=== PATIENT | male | born 1995 | race Caucasian/White ===

== ENCOUNTER 2021-06-17 10:22 | Emergency (ER) | payer OTHER, SELFPAY ==
[2021-06-17 10:33] VITALS: BP 145/95; PULSE 108; RESP 16; TEMP 36.4; O2SAT 100
--- NOTE | 2021-06-17 10:37 | ED.GENADULT ---
HPI - General Adult General Chief complaint: Headache Stated complaint: Headache Time Seen by Provider: 06/17/21 10:57 Source: patient and RN notes reviewed Mode of arrival: ambulatory Limitations: no limitations History of Present Illness HPI narrative: 26-year-old presents concern for left-sided headache, eye pressure, eye irritation, sinus drainage, nasal congestion, worse on the left. Reports occasional cough. Denies body aches, chills, sweats, fever, trouble breathing, loss of sense of taste or smell. Denies history of migraines. Reports he has been using [id number] cold medicines which have slightly improved symptoms temporarily. Reports taking Excedrin Migraine which temporarily relieved his headache. Denies known sick contacts. MD complaint: Headache Related Data Allergies Allergy/AdvReac Type Severity Reaction Status Date / Time latex Allergy Unknown Hives Verified 06/17/21 10:39 Iodinated Contrast Media Allergy Hives Verified 06/17/21 10:50 Iodine and Iodide Containing Allergy Hives Verified 06/17/21 10:50 Produc cinnamon AdvReac Intermediate facial Verified 06/17/21 10:39 swelling Review of Systems Review of Systems: CONSTITUTIONAL: Denies malaise, chills, sweats, or fever. EYES: Denies visual changes, redness, or discharge. ENT: Reports rhinorrhea, congestion. Denies sinus pain, otalgia and sore throat. CARDIOVASCULAR: Denies chest pain, palpitations, or edema. RESPIRATORY: Reports cough. Denies dyspnea. GASTROINTESTINAL: Denies abdominal pain, nausea, vomiting, diarrhea SKIN: Denies rash or itching. MUSCULOSKELETAL: Denies myalgia. NEUROLOGIC: Reports left-sided headache. All systems reviewed & are unremarkable except as noted in HPI and below PMFSH Family History Family History (Updated 06/01/14 @ 07:13 by DOCTOR UNKNOWN) Mother Cerebrovascular accident Social History Social History Smoking status: Never smoker Alcohol intake: never Comments At time of signature, agree with nursing past medical, surgical, social and family history. There is no relevant family history pertinent to the presenting complaint Exam Narrative: GENERAL: Well-appearing, well-nourished, and in no acute distress. HEAD: Normocephalic EYES: PERRLA, conjunctivae clear ENT: Nares clear, left-sided turbinates edematous and erythematous, clear discharge. Mucous membranes moist. TM pearly bueno with dull light reflex bilaterally; no tragal tenderness. Oropharynx not erythematous without lesions. Tonsils not enlarged and without exudate, no drooling, no hoarseness, no trismus, uvula midline. NECK: Supple. No lymphadenopathy CHEST: Clear to auscultation, breath sounds equal. No wheezing, rhonchi, rales, or stridor. No respiratory distress, speaks in full sentences. HEART: Regular rate and rhythm. No murmur heard. SKIN: Warm, dry, no rash. NEURO: Alert and oriented x3. No focal deficits. Cranial nerves II through XII grossly intact PSYCH: Normal mood and affect Course Course Emergency Course: Patient is aware of diagnosis, understands and agrees to treatment plan. Anticipatory guidance given. Patient agrees to follow-up as directed and is aware of reasons to seek care at the emergency department. Portions of this record may have been created with voice recognition software Vital Signs Vital signs: Vital Signs Temperature 97.6 F 06/17/21 10:33 Pulse Rate 108 H 06/17/21 10:33 Respiratory Rate 16 06/17/21 10:33 Blood Pressure 145/95 H 06/17/21 10:33 Pulse Oximetry 100 06/17/21 10:33 Temperature 97.6 F 06/17/21 10:33 Pulse Rate 108 H 06/17/21 10:33 Respiratory Rate 16 06/17/21 10:33 Blood Pressure 145/95 H 06/17/21 10:33 Pulse Oximetry 100 06/17/21 10:33 Reviewed. Medical Decision Making MDM Narrative Medical decision making narrative: Differential diagnosis considered: Migraine, temporal arteritis, intracranial pathology, Smith virus, strep pharyngitis, allergic rhin
== END 2021-06-17 11:08 | disposition home or self-care (01) ==
PROVIDERS: Emergency Provider Nurse Practitioner
DX: J01.10 Acute frontal sinusitis, unspecified (principal); I10 Essential (primary) hypertension; E11.9 Type 2 diabetes mellitus without complications
CPT/HCPCS: 99213; G0463

== ENCOUNTER 2021-06-24 17:18 | Emergency (ER) | payer OTHER, SELFPAY ==
[2021-06-24 17:28] VITALS: BP 135/87; PULSE 117; RESP 18; TEMP 36.2; O2SAT 99
--- NOTE | 2021-06-24 19:19 | ED.NAVMDI ---
HPI - Nausea/Vomiting/Diarrhea General Chief complaint: Nausea/Vomiting/Diarrhea Stated complaint: Nausea Time Seen by Provider: 06/24/21 19:19 Source: patient, RN notes reviewed and old records reviewed Mode of arrival: ambulatory Limitations: no limitations History of Present Illness HPI Narrative: 26 year old male who presents to [facility] care with complaints of nausea with no emesis but has had diarrhea today. 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 He denies any cough or cold symptoms, denies any chills or any bodt aches. MD elicited complaint: nausea, vomiting and diarrhea Related Data Allergies Allergy/AdvReac Type Severity Reaction Status Date / Time latex Allergy Unknown Hives Verified 06/24/21 19:01 Iodinated Contrast Media Allergy Hives Verified 06/24/21 19:01 Iodine and Iodide Containing Allergy Hives Verified 06/24/21 19:01 Produc cinnamon AdvReac Intermediate facial Verified 06/24/21 19:01 swelling Review of Systems Review of Systems: CONSTITUTIONAL: Denies fever, chills, positive sweats EYES: Denies visual changes, redness, or discharge. ENT: Denies rhinorrhea, congestion, sore throat, or otalgia. CARDIOVASCULAR: Denies chest pain, palpitations, or edema. RESPIRATORY: Denies cough or dyspnea. GASTROINTESTINAL: Denies abdominal pain, states his stomach is upset with nausea,no vomiting, Positive diarrhea. GENITOURINARY: Denies dysuria or hematuria. SKIN: Denies rash or itching. MUSCULOSKELETAL: Denies back pain, joint pain, or myalgia. NEUROLOGIC: Denies headache, numbness, or weakness. PSYCHIATRIC: Denies anxiety or depression. All systems reviewed & are unremarkable except as noted in HPI and below PMFSH Past Medical History Medical History (Updated 06/25/21 @ 00:01 by Lis Davidson) Diabetes Hypertension Family History Family History (Updated 06/26/21 @ 20:03 by Shazia Thomas NP) Mother Cerebrovascular accident Other Diabetes mellitus Hypertension Social History Social History Smoking status: Never smoker Alcohol intake: never Comments At time of signature, agree with nursing past medical, surgical, social and family history. There is no relevant family history pertinent to the presenting complaint Exam Narrative: GENERAL: Well-appearing, well-nourished,obese and in no acute distress. HEAD: Normocephalic, atraumatic. EYES: PERRLA and EOMI. ENT: Nares clear, no rhinorrhea or epistaxis. Mucous membranes moist.TM's normal with good light reflex, throat pink with no lesions or exudates, no tonsil enlargement. NECK: Supple.no lymphadenopathy CHEST: Clear to auscultation. No respiratory distress.SAO2 99% on room air. HEART: Regular rate and rhythm. No murmur heard. Normal peripheral pulses. ABDOMEN: Soft, nontender to palpation with no McBurney point tenderness, nondistended, normal active bowel sounds. EXTREMITIES: Normal range of motion. No edema. SKIN: Warm, dry, no rash. NEURO: No focal deficits. Alert and oriented x3. Course Vital Signs Vital signs: Vital Signs Temperature 36.2 C L 06/24/21 17:28 Pulse Rate 117 H 06/24/21 17:28 Respiratory Rate 18 06/24/21 17:28 Blood Pressure 135/87 06/24/21 17:28 Pulse Oximetry 99 06/24/21 17:28 Temperature 36.2 C L 06/24/21 17:28 Pulse Rate 117 H 06/24/21 17:28 Respiratory Rate 18 06/24/21 17:28 Blood Pressure 135/87 06/24/21 17:28 Pulse Oximetry 99 06/24/21 17:28 MDM - Nausea/Vomiting/Diarrhea Differential Diagnosis Differential diagnosis: Likely food poisoning, gastroenteritis and other (diarrhea, nausea, Type I diabetic,) Medical Records Attestation: I reviewed the patient's medical records. Lab Data Attestat
[2021-06-26 16:56] LABS: SARS-CoV-2 RNA PCR Negative
== END 2021-06-24 19:55 | disposition home or self-care (01) ==
PROVIDERS: Emergency Provider Registered Nurse
DX: K52.9 Noninfective gastroenteritis and colitis, unspecified (principal); E11.9 Type 2 diabetes mellitus without complications; I10 Essential (primary) hypertension; Z20.822 Contact with and (suspected) exposure to COVID-19
CPT/HCPCS: 99213; C9803; G0463; U0003; U0005

== ENCOUNTER 2024-02-08 11:14 | Emergency (ER) | payer OTHER, SELFPAY ==
--- NOTE | ~2024-02-08 | XR_ITS ---
EXAMINATION: XR hand RT min 3V DATE: 02/08/2024 11:41 INDICATION: Right hand pain and swelling TECHNIQUE: Posteroanterior, oblique and lateral views of the right hand were obtained. COMPARISON: None. FINDINGS: Bone alignment is normal. No fracture. Small corticated ossicle either heterotopic ossification or sm all sesamoid bone palmar to the third proximal interphalangeal joint with no evident donor site to [place] ggest fracture. No acute fractures identified. Joint spaces are normal. No cortical erosions or perio steal reaction. Diffuse soft tissue swelling about the hand most prominent at the base of the fingers . No soft tissue gas or radiopaque foreign bodies. IMPRESSION: 1. No osseous abnormality. Reviewed, dictated and finalized at location A. IMPRESSION: 1. No osseous abnormality.
--- NOTE | 2024-02-08 11:26 | ED.EXTPRO ---
HPI - Extremity Problem General Chief complaint: Extremity Problem,Nontraumatic Stated complaint: right hand bruising,hurts Time Seen by Provider: 02/08/24 11:27 Source: patient Mode of arrival: ambulatory Limitations: no limitations History of Present Illness HPI Narrative: 28 yo M presents with pain to palm of R hand with redness and swelling getting progressively worse over 2 days. Afebrile. ROM and distal NV intact. denies injury. 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 Concerns metal in skin or got poked by the metal. tetanus UTD. all systems reviewed and negative except as noted above. Related Data Home Medications Medication Instructions Recorded Confirmed insulin lispro 100 unit/mL subcut 02/08/24 subcutaneous pen Allergies Allergy/AdvReac Type Severity Reaction Status Date / Time latex Allergy Unknown Hives Verified 02/08/24 11:26 Iodinated Contrast Media Allergy Hives Verified 02/08/24 11:26 Iodine and Iodide Containing Allergy Hives Verified 02/08/24 11:26 Produc cinnamon AdvReac Intermediate facial Verified 02/08/24 11:26 swelling Review of Systems Review of Systems: CONSTITUTIONAL: Denies fever, chills, or sweats. EYES: Denies visual changes, redness, or discharge. ENT: Denies rhinorrhea, congestion, sore throat, or otalgia. CARDIOVASCULAR: Denies chest pain, palpitations, or edema. RESPIRATORY: Denies cough or dyspnea. GASTROINTESTINAL: Denies abdominal pain, nausea, vomiting, or diarrhea. GENITOURINARY: Denies dysuria or hematuria. SKIN: Denies rash or itching. MUSCULOSKELETAL: Denies back pain, joint pain, or myalgia. Patient reports pain and swelling with redness to palm right hand. NEUROLOGIC: Denies headache, numbness, or weakness. PSYCHIATRIC: Denies anxiety or depression. All other systems reviewed are negative, except as documented in HPI. [facility] Past Medical History Medical History (Updated 02/08/24 @ 11:56 by Nikia Sarkar NP) Diabetes Hypertension Family History Family History (Updated 06/26/21 @ 20:03 by Shazia Thomas NP) Mother Cerebrovascular accident Other Diabetes mellitus Hypertension Social History Social History Smoking status: Never smoker Alcohol intake: never Comments At time of signature, agree with nursing past medical, surgical, social and family history. There is no relevant family history pertinent to the presenting complaint. Exam Narrative: GENERAL: This is a well-nourished, well-developed patient, in no apparent distress. HEAD: normocephalic, atraumatic. EYES: PERRL. Sclera clear/white. Vision is grossly intact. EARS: External ears normal NOSE: External nose normal NECK: Neck supple, non-tender without lymphadenopathy, masses or thyromegaly. CARDIOVASCULAR: Regular rate and rhythm without murmurs, gallops, or rubs. RESPIRATORY: Clear to auscultation. Breath sounds equal bilaterally. No wheezes, rales, or rhonchi. SKIN: warm, Dry, intact with no suspicious lesions or rash, good texture and turgor. NEURO: awake, alert, and oriented to person, place and time. There were no obvious focal neurologic abnormalities. EXTREMITIES: No joint tenderness, effusion, or edema noted. MUSCULOSKETAL: swelling to R hand with tenderness and erythema to palm of R hand, hypothenar Course Course Level of Care: Express Care Visit Vital Signs Vital signs: Reviewed patient's heart rate elevated today. States that he drink energy drink prior to arrival. Also did not take blood pressure medications morning. MDM - Extremity (Nontraumatic) MDM Narrative Medical decision making narrative: Discussed x-ray results with patient. X-ray negative for fracture, no foreign body. Will treat patient with cephalexin for cellulitis. Cellulitis is mild, range of motion and distal neurovascularly intact to right hand. Patient nontoxic.
[2024-02-08 11:27] VITALS: BP 140/98; PULSE 116; RESP 16; TEMP 36.6; O2SAT 99
[2024-02-08 11:34] VITALS: PULSE 116; RESP 16; TEMP 36.6; O2SAT 99
== END 2024-02-08 12:00 | disposition home or self-care (01) ==
PROVIDERS: Emergency Provider Nurse Practitioner Family
DX: L03.113 Cellulitis of right upper limb (principal); E11.9 Type 2 diabetes mellitus without complications; Z79.4 Long term (current) use of insulin; I10 Essential (primary) hypertension
CPT/HCPCS: 73130; 99213; G0463

== ENCOUNTER 2024-09-29 12:10 | Emergency (ER) | payer OTHER, SELFPAY ==
[2024-09-29 12:23] VITALS: BP 144/96; PULSE 120; RESP 18; TEMP 36.9; O2SAT 99
--- NOTE | 2024-09-29 13:01 | ED.GENADULT ---
HPI - General Adult General Chief complaint: Eye Problems Stated complaint: rt eye pain and swelling Time Seen by Provider: 09/29/24 13:17 Source: patient, RN notes reviewed and old records reviewed Mode of arrival: ambulatory Limitations: no limitations History of Present Illness HPI narrative: 29-year-old male presents to the [facility] with complaints of right side of face discomfort, states that feels swollen. Also reports cough and congestion. Denies any drainage, blurry vision or change in vision from the eye. Reports taken Sudafed and Tylenol. Vision is a type 1 diabetic. Has not taken any insulin because he has not eaten today. Has not had his pump on. Reports that he does have his linens [employer] use it on upon discharge. Discussed signs and symptoms to go the emergency room, declining transfer at this time to lower blood sugar. Onset (ago): day(s) (3) Related Data Home Medications ?Medication ?Instructions ?Recorded ?Confirmed ?Last Taken ?Type insulin lispro 100 unit/mL subcut 02/08/24 09/28/24 History subcutaneous pen atorvastatin 10 mg tablet mg 09/29/24 Unknown History blood-glucose sensor (Dexcom G7 09/29/24 09/29/24 Unknown History Sensor device) insulin glargine 100 unit/mL (3 unit subcut 09/29/24 09/28/24 History mL) subcutaneous pen (Lantus Solostar U-100 Insulin) losartan 25 mg tablet mg 09/29/24 Unknown History Allergies Allergy/AdvReac Type Severity Reaction Status Date / Time latex Allergy Unknown Hives Verified 09/29/24 12:20 Iodinated Contrast Media Allergy Hives Verified 09/29/24 12:20 Iodine and Iodide Containing Allergy Hives Verified 09/29/24 12:20 Produc cinnamon AdvReac Intermediate facial Verified 09/29/24 12:20 swelling Review of Systems Review of Systems: All systems reviewed & are unremarkable except as noted in HPI and below Constitutional: Constitutional: Reports no additional constitutional complaints ENT: Reports as per HPI Cardiovascular: Cardiovascular: Reports no additional cardiovascular complaints, Denies chest pain and Denies dyspnea Respiratory: Respiratory: Reports no additional respiratory complaints, Denies chest congestion, Denies cough and Denies dyspnea Musculoskeletal: Musculoskeletal: Reports no additional musculoskeletal complaints Integumentary/Breasts: Skin/Breast: Reports system reviewed and no additional complaints, except as docu PMFSH Past Medical History Medical History Hypertension Diabetes Family History Family History Mother Cerebrovascular accident Other Diabetes mellitus Hypertension Social History Social History Smoking status: Never smoker Alcohol intake: never Comments At the time of my signature, I reviewed and agree with the nursing past medical, surgical, social, and family history. There is no relevant family history pertinent to the patient complaint. Exam Const: General: cooperative, healthy appearing, comfortable, no acute distress, well developed, alert and well nourished Nutritional Appearance: well nourished and obese Orientation/consciousness: patient oriented x3 Limitations: no limitations HENMT: Head: normal to inspection Ears: hearing grossly normal bilaterally, external ears normal, TM's normal bilaterally, EAC's normal, mastoids normal and no periauricular adenopathy Face/Nose/Sinus: Normal nasal mucous membranes and turbinates present, No nasal discharge present, normal facial exam and face symmetric Face and sinus: normal facial exam and face symmetric Mouth: Yes Normal oral and palatal mucosa present, Yes lip normal, Yes tongue normal and Yes moist mucous membranes Throat: posterior oropharynx normal, tonsils normal, uvula midline and no uvular edema Eyes: General: appearance normal, both eyes and all related structures Neck: Neck: normal visual inspection, full ROM, no lymphadenopathy and no meningeal signs Chest: Chest palpation & inspection: normal inspection of the chest Resp: Effort & Inspection: normal respiratory effort and able to speak in complete sentences Auscultation: clear to auscultation bilaterally, no crackles, no rales, no rhonchi and no wheezes Cardio: Rate: regular rate Skin: General skin exam: normal color and no rashes or lesions noted Neuro: General: patient oriented x3, gait normal, moves all extremities and no meningeal signs Cognition (Neuro): normal cognition Speech: normal speech Gait exam (Neuro): Normal gait present Extrem: General: normal to inspection, full ROM, capillary refill normal and normal gait Psych: Appearance: grossly normal and well kempt Mental Status: mental status grossly normal Speech and movement: Normal speech and movement present and Clear speech present Affect: normal affect Attitude: cooperative Course Course Level of Care: Express Care Visit Vital Signs Vital signs: Vital Signs Temperature 98.5 F 09/29/24 12:23 Pulse Rate 120 H 09/29/24 12:23 Respiratory Rate 18 09/29/24 12:23 Blood Pressure 144/96 H 09/29/24 12:23 Pulse Oximetry 99 09/29/24 12:23 Oxygen Delivery Room Air 09/29/24 12:23 Temperature 98.5 F 09/29/24 12:23 Pulse Rate 120 H 09/29/24 12:23 Respiratory Rate 18 09/29/24 12:23 Blood Pressure 144/96 H 09/29/24 12:23 Pulse Oximetry 99 09/29/24 12:23 Oxygen Delivery Room Air 09/29/24 12:23 Reviewed Medical Decision Making MDM Narrative Medical decision making narrative: Patient sitting comfortably in exam room. Nontoxic, vitals stable. Patient in no acute distress Patient presents for 3 days of sinus congestion. Flu and COVID test was offered, blood sugar done blood sugar is found to be elevated. Offered to send to the emergency room for further evaluation, concerned for noncompliance for type 1 diabetes. Discussed risks of not properly treating diabetes with patient which she verbalized understanding No acute findings noted the eyes, no signs of conjunctivitis. Most likely viral sinusitis. Patient appropriate for outpatient treatment and follow-up Discharge instructions reviewed with patient, as well as provided in writing per nursing staff. The instructions also include specific and strict return/GO TO THE ER as well as f/u information. All questions have been answered, and the patient deny any further questions with discharge and discharge plan. Some parts of this dictation were generated by voice recognition software and may contain typographical and/or grammatical inaccuracies. Differential Diagnosis Differential Diagnosis: Sinusitis, URI Medical Records Medical records reviewed: Yes I reviewed the external patient's medical records. Vital Signs Vital Signs: Vital Signs Temperature 98.5 F 09/29/24 12:23 Pulse Rate 120 H 09/29/24 12:23 Respiratory Rate 18 09/29/24 12:23 Blood Pressure 144/96 H 09/29/24 12:23 Pulse Oximetry 99 09/29/24 12:23 Oxygen Delivery Room Air 09/29/24 12:23 Temperature 98.5 F 12/26/24 12:23 Pulse Rate 120 H 09/29/24 12:23 Respiratory Rate 18 09/29/24 12:23 Blood Pressure 144/96 H 09/29/24 12:23 Pulse Oximetry 99 09/29/24 12:23 Oxygen Delivery Room Air 09/29/24 12:23 Reviewed Lab Data Lab results reviewed: Yes I reviewed the patient's lab results. Labs: Lab Results 09/29/24 Range/Units 13:30 POC Capillary Glucose 322 H (65-105) mg/dl Reviewed Critical Care Time Critical Care Time Critical Care Time: No Discharge Plan Discharge Clinical Impression: Sinusitis, High blood sugar Patient Disposition: Home, Self-Care Condition: Stable Instructions: Antibiotic Form, Sinusitis (ED) Additional Instructions: take Tylenol or Motrin for pain. Your blood sugar was elevated today in clinic. Is extremely important that you do monitor your blood sugar and treat. Uncontrolled blood sugar can lead to more serious health issues. If you are having a hard time finding a physician please call our [facility] liaison at [phone]. If you have increasing symptoms please go directly to the emergency room Use a humidifier or vaporizer at night. Take Medications as prescribed. Drink plenty of water. 8-10 glasses per day. Use flonase 2 times per day for 5 days then as needed Take mucinex 2 times per day and be sure to take with 8oz of water. Follow up with Primary provider if not getting better. Patient Language: Lithuanian Prescriptions: New fluticasone propionate [Flonase Allergy Relief] 50 mcg/actuation spray,suspension 2 spray intranasal DAILY Qty: 16 0RF Rx Instructions: administer into each nostril No Action insulin lispro 100 unit/mL insulin pen SUBCUT insulin glargine [Lantus Solostar U-100 Insulin] 100 unit/mL (3 mL) insulin pen SUBCUT (DME) Dexcom G7 Sensor Device MISCELLANEOUS atorvastatin 10 mg tablet losartan 25 mg tablet Follow-up/Referrals: PHYSICIAN,ROTOR BALANCER [Primary Care Provider] - Stand Alone Forms: Work/School Release IP Time of Disposition: 13:32
[2024-09-29 13:33] LABS: Glucose Point of Care 322 mg/dl (65-105)
== END 2024-09-29 13:33 | disposition home or self-care (01) ==
PROVIDERS: Emergency Provider Nurse Practitioner
DX: J32.9 Chronic sinusitis, unspecified (principal); E10.9 Type 1 diabetes mellitus without complications; Z79.4 Long term (current) use of insulin; Z96.41 Presence of insulin pump (external) (internal); I10 Essential (primary) hypertension
CPT/HCPCS: 82948; 99213; G0463

== ENCOUNTER 2025-02-01 14:31 | Emergency (ER) | payer OTHER, SELFPAY ==
--- NOTE | 2025-02-01 14:34 | ED_ITS ---
HPI - URI/Sore Throat General Chief Complaint: Upper Respiratory Infection Stated Complaint: Sore Throat/Nausea Time Seen by Provider: 02/01/25 14:34 Source: patient Mode of arrival: ambulatory Limitations: no limitations History of Present Illness HPI Narrative: Patient is a 29-year-old male that presents with 3 days of sore throat, hoarse voice, congestion, cough, nausea. Patient also has headache and has felt feverish. Denies any chills, body aches, vomiting or diarrhea. Patient has not taken anything for symptoms. Hx of strep throat. Related Data Home Medications ?Medication ?Instructions ?Recorded ?Confirmed ?Last Taken ?Type insulin lispro 100 unit/mL subcut 02/08/24 09/28/24 History subcutaneous pen atorvastatin 10 mg tablet mg 09/29/24 Unknown History blood-glucose sensor (Dexcom G7 09/29/24 09/29/24 Unknown History Sensor device) insulin glargine 100 unit/mL (3 unit subcut 09/29/24 09/28/24 History mL) subcutaneous pen (Lantus Solostar U-100 Insulin) losartan 25 mg tablet mg 09/29/24 Unknown History Allergies Allergy/AdvReac Type Severity Reaction Status Date / Time latex Allergy Unknown Hives Verified 02/01/25 14:39 Iodinated Contrast Media Allergy Hives Verified 02/01/25 14:39 Iodine and Iodide Containing Allergy Hives Verified 02/01/25 14:39 Produc cinnamon AdvReac Intermediate facial Verified 02/01/25 14:39 swelling Review of Systems Review of Systems: All systems reviewed & are unremarkable except as noted in HPI and below Constitutional: Constitutional: Denies chills, Denies fatigue, Reports fever(s), Reports headache(s), Denies malaise and Denies weakness Eyes: Eyes: Denies blurry vision, Denies itchy eyes and Denies loss of vision ENT: Denies otalgia, Reports headache(s), Reports hoarseness, Reports nasal congestion, Denies sinus pain and Reports sore throat Cardiovascular: Cardiovascular: Denies chest pain, Denies irregular heart rhythm and Denies dyspnea Respiratory: Respiratory: Reports cough and Denies dyspnea Gastrointestinal: Gastrointestinal: Denies abdominal pain, Denies diarrhea, Denies nausea and Denies vomiting Musculoskeletal: Musculoskeletal: Denies back pain, Denies myalgias and Denies arthralgias Integumentary/Breasts: Skin/Breast: Denies pruritus and Denies rash Neurologic: Reports headache(s), Denies loss of vision and Denies weakness Psychiatric: Psychiatric: Reports no additional psychiatric complaints Endocrine: Endocrine: Denies fatigue Allergic/Immunologic: Allergic/Immunologic: Denies itchy eyes PMFSH Past Medical History Medical History Hypertension Diabetes Family History Family History Mother Cerebrovascular accident Other Diabetes mellitus Hypertension Social History Social History Smoking status: Never smoker Alcohol intake: never Comments At time of signature, agree with nursing past medical, surgical, social and family history. There is no relevant family history pertinent to the presenting complaint. Exam Const: General: cooperative, healthy appearing, comfortable, no acute distress and well nourished Nutritional Appearance: well nourished Orientation/consciousness: patient oriented x3 Limitations: no limitations HENMT: Head: normal to inspection, normocephalic and atraumatic Ears: hearing grossly normal bilaterally, external ears normal, TM's normal bilaterally, EAC's normal and no periauricular adenopathy Face/Nose/Sinus: Normal external nose present, Abnormal mucous membranes and turbinates present erythematous bilateral and diffuse, normal facial exam, sinuses nontender and face symmetric Face and sinus: normal facial exam, sinuses nontender and face symmetric Mouth: Yes Normal oral and palatal mucosa present, Yes lip normal, Yes tongue normal, Yes Normal salivary glands and ducts present, Yes oropharynx normal and Yes moist mucous membranes Teeth and gingiva: dentition normal Throat: posterior oropharynx normal, uvula midline and abnormal tonsil bilateral hypertrophy 3+ Eyes: General: appearance normal, both eyes and all related structures Alignment and Position: alignment normal and position normal Periorbital: periorbital findings normal Eyelids: eyelids normal Pupils: Equal, round and reactive pupils present Neck: Neck: normal visual inspection, full ROM, no lymphadenopathy and supple Chest: Chest palpation & inspection: normal inspection of the chest and normal palpation of entire chest wall Resp: Effort & Inspection: normal respiratory effort and able to speak in complete sentences Auscultation: clear to auscultation bilaterally, no crackles, no rales, no rhonchi and no wheezes Cardio: Rate: regular rate Rhythm: regular rhythm Heart sounds: S1 normal heart sound present and S2 normal heart sound present GI: Inspection: normal to inspection Skin: General skin exam: normal color and no rashes or lesions noted Neuro: General: patient oriented x3 and moves all extremities Cranial nerves: Yes Equal, round and reactive pupils present Speech: normal speech Gait exam (Neuro): Normal gait present Extrem: General: normal to inspection, full ROM and no edema Psych: Appearance: grossly normal and well kempt Mental Status: mental status grossly normal Speech and movement: Normal speech and movement present Affect: normal affect Attitude: cooperative Thought process: Normal thought process present Course Course Emergency Course: Discharge instructions reviewed with patient, as well as provided in writing per nursing staff. The instructions also include specific and strict return/GO TO THE ER as well as f/u information. All questions have been answered, and the patient deny any further questions with discharge and discharge plan. Portions of this record may have been created with voice recognition software Level of Care: Express Care Visit Vital Signs Vital signs: Vital Signs Temperature 37.1 C 02/01/25 14:43 Pulse Rate 109 H 02/01/25 14:43 Respiratory Rate 19 02/01/25 14:43 Blood Pressure 146/91 H 02/01/25 14:43 Pulse Oximetry 98 02/01/25 14:43 Oxygen Delivery Room Air 02/01/25 14:43 Temperature 37.1 C 02/01/25 14:43 Pulse Rate 109 H 02/01/25 14:43 Respiratory Rate 19 02/01/25 14:43 Blood Pressure 146/91 H 02/01/25 14:43 Pulse Oximetry 98 02/01/25 14:43 Oxygen Delivery Room Air 02/01/25 14:43 Reviewed MDM - URI/Sore Throat MDM Narrative Medical decision making narrative: Pt well hydrated appearing, in no respiratory distress, hemodynamically stable. Recommend supportive care. The patient is stable at time of discharge the clinical impression was discussed and the patient was given the opportunity to ask questions, which were addressed as completely as possible given the information available at present. Anticipatory guidance and return to care precautions were discussed and the importance of primary care follow-up was stressed and encouraged. The patient voiced understanding of the plan, indications to return, and the need for follow-up. Exam findings show no acute concerns or changes Patient is appropriate for outpatient treatment and follow-up. Differential diagnosis considered: Smith virus, strep pharyngitis, allergic rhinitis, upper respiratory tract infection, sinusitis, rhinosinusitis, nasopharyngitis. viral pharyngitis, otitis media, otitis externa, otitis effusion, foreign body, cerumen impaction, viral syndrome, and influenza.? Medical Records Attestation: I reviewed the patient's medical records. Lab Data Attestation: I reviewed the patient's lab results. Labs: Lab Results 02/01/25 02/01/25 Range/Units 14:58 15:07 POC Influenza A Ag Negative (Negative) POC Influenza B Ag Negative (Negative) POC SARS CoV-2 Ag Negative (Negative) POC Grp A Strep Screen Negative (Negative) Discharge Plan Discharge Clinical Impression: Upper respiratory infection Qualifiers: URI type: unspecified viral URI Qualified Code(s): J06.9 - Acute upper respiratory infection, unspecified Patient Disposition: Home Condition: Stable Instructions: Upper Respiratory Infection (ED) Additional Instructions: Your rapid strep swab was negative today at [facility]. A throat culture will be sent to the laboratory for further testing. If the test is positive, you will receive a phone call within 48 hours and an appropriate antibiotic will be initiated at that time. Your Covid and flu are both negative Your symptoms are likely due to a viral illness, which is not treated with antibiotics. Viral symptoms can be present for up to a few weeks. -For pain/fever, you may take: Tylenol 650-1000mg by mouth every 4-6 hours. Do not exceed 4000mg in 24 hours. Advil (Ibuprofen) 600 mg by mouth every 6 hours. Do not exceed 2400mg in 24 hours. 8 AM: Tylenol 11 AM: Ibuprofen 2 PM: Tylenol 5 PM: Ibuprofen 8 PM: Tylenol 11 PM: Ibuprofen 2 AM: Tylenol 5 AM: Ibuprofen -Antihistamine medication such as Benadryl/Zyrtec at night and Claritin/Karena during the day can help improve symptoms. -Use Flonase twice a day for 5 days then daily to help reduce the inflammation and dry up your sinuses. -You can also use Sudafed behind the pharmacy counter(12 or 24 hour). Be sure to drink plenty of water with these medications at least 8 ounces with every dose and it is important to drink 8 to 10 glasses of water per day. Water is a natural decongestant -Eat and drink things that are easy to swallow, like tea or soup, or popsicles. -Oral rinses such as: Salt water gargles and/or may use topical anesthetic (eg. Chloraseptic spray) or lozenges to relieve dryness or throat pain). -Frequent hand washing or hand nursery manager is one of the best ways to prevent spread of infection. -Using a vaporizer or humidifier at night will also help thin secretions and help with coughing up phlegm. Call your Primary Care Doctor and make a follow-up appointment in 3 days. If your cough worsens, you develop a fever greater than 103, you develop shaking chills, a fast heartbeat, trouble breathing and/or feel you are are breathing much faster than usual, call your Primary Care Doctor or go to the ER. Your blood pressure was elevated above 120/80 today at Urgent Care. This puts you above the threshold for follow up visit with a primary care provider. High blood pressure does not usually cause any symptoms, however it may lead to kidney failure, stroke, heart disease just to name a few if untreated . Many people are anxious when seeing a provider or nurse. As a result, you are not diagnosed with hypertension at this time unless your blood pressure is persistently high at two office visits at least one week apart. Some things that can help lower blood pressure are lifestyle modifications, such as light exercise, decreased salt in diet, and weight loss. It is important to follow up with a PCP about this within 1 week. If you are having a hard time finding a physician please call our [facility] group liaison at [phone]. Patient Language: Guamanian Prescriptions: No Action insulin lispro 100 unit/mL insulin pen SUBCUT insulin glargine [Lantus Solostar U-100 Insulin] 100 unit/mL (3 mL) insulin pen SUBCUT (DME) Dexcom G7 Sensor Device MISCELLANEOUS atorvastatin 10 mg tablet losartan 25 mg tablet Follow-up/Referrals: Yan Birmingham MD [Physician] - 3 Days (Establish care) Stand Alone Forms: Work/School Release IP Time of Disposition: 15:21
[2025-02-01 14:43] VITALS: BP 146/91; PULSE 109; RESP 19; TEMP 37.1; O2SAT 98
[2025-02-01 15:00] LABS: EDSTREPNEGPOS1 Negative (Negative)
[2025-02-01 15:09] LABS: EDCOVIDSCREEN Negative (Negative); EDINFLUASCREEN Negative (Negative); EDINFLUBSCREEN Negative (Negative)
== END 2025-02-01 15:25 | disposition home or self-care (01) ==
PROVIDERS: Emergency Provider Nurse Practitioner Family
DX: J06.9 Acute upper respiratory infection, unspecified (principal); Z20.822 Contact with and (suspected) exposure to COVID-19; I10 Essential (primary) hypertension; E11.9 Type 2 diabetes mellitus without complications; Z79.84 Long term (current) use of oral hypoglycemic drugs
CPT/HCPCS: 87081; 87426; 87804; 87880; 99213; G0463